=== PATIENT | male | born 1960 | race Caucasian/White ===

== ENCOUNTER → 2018-04-07 | Outpatient (CLI) | payer OTHER ==
[~2018-04-07] MED LIST: ASPIRIN 81M81 MG/TA2 PO; AVAPRO300 M1 PO; COREG 25MG25 MG/TAB PO; DESYREL 50MG50 MG PO; FLONASE NASAL S16 GM NS; GLUCOPHAGE1000 MG PO; KLONOPIN 1MG1 MG PO; LANTUS100 U/ML SC; LEXAPRO 10MG10 MG PO; NORCO 325 MG-51 TAB PO; NORVASC 5MG5 MG/TAB PO; NOVOLOG 100U100 U/M1 SC; PREDNISONE20 MG PO; PROVENTIL0.09 MG/A1 IH; RT ADVAIR 228 DISKUS IH; SINGULAIR 110 MG/TAB PO; VYTORIN 10 MG-41 TAB PO; ZYRTEC 10MG10 MG PO
== END ==
LOC: COL.VAS 08:31
DX: I51.7 Cardiomegaly (principal); I34.8 Other nonrheumatic mitral valve disorders

== ENCOUNTER → 2018-06-01 | Outpatient (CLI) | payer OTHER | LOC: COL.PUL 11:07 | DX: J45.909 Unspecified asthma, uncomplicated (principal); Z79.899 Other long term (current) drug therapy ==

== ENCOUNTER → 2018-12-28 | Outpatient (CLI) | payer OTHER | LOC: COL.PUL 09:27 | DX: J45.40 Moderate persistent asthma, uncomplicated (principal) | CPT/HCPCS: J7674 ==

== ENCOUNTER → 2019-07-28 | Outpatient (CLI) | payer OTHER | LOC: COL.RAD 11:26 | DX: R11.15 Cyclical vomiting syndrome unrelated to migraine (principal) | CPT/HCPCS: A9537; J2805 ==

== ENCOUNTER 2021-08-12 17:49 | Inpatient (IN) | payer OTHER ==
[~2021-08-12] VITALS: Ht 180.3 cm; Wt 156.4 kg
[2021-08-12 20:00] VITALS: BP 154/91; PULSE 167; TEMP 99
[2021-08-12 22:16] LABS: PARTIAL THROMBOPLASTIN TIME 28.8 SECONDS (26.0-37.0)
[2021-08-12] MEDS ORDERED: LIPITOR 80MG80 MG PO (22:44)
[2021-08-12] MEDS ORDERED: CALCIUM-500 5001 CTB PO (22:49)
[2021-08-12] MEDS ORDERED: VITAMIN D31000 IU PO (22:49)
[2021-08-12] MEDS ORDERED: FLINTSTONES1 CTB PO (22:50)
[2021-08-12] MEDS ORDERED: ZINC16.7 MG PO (22:51)
[2021-08-12] MEDS ORDERED: VITAMIN B12 781 TAB PO (22:51)
[2021-08-12] MEDS ORDERED: WELLBUTRIN XL300 M1 PO (22:52)
[2021-08-12] MEDS ORDERED: OZEMPIC0.25 MG/0. SQ (22:54)
[2021-08-12 23:24] VITALS: BP 150/81; PULSE 112; TEMP 98.7
[2021-08-13] VITALS (7 sets, daily range): BP systolic 112–155; BP diastolic 48–107; PULSE 71–107; TEMP 97.4–98.5
[2021-08-13] MEDS ORDERED: LEVOXYL0.112 MG PO (02:29)
[2021-08-13 06:47] LABS: BASO # 0.1 K/mm3 (0.0-0.2); EOS # 0.1 K/mm3 (0.0-0.7); EOS % 2.1 % (0.0-4.0); GRAN # 4.4 K/mm3 (1.4-6.5); GRAN % 65.2 % (42.2-75.2); HEMATOCRIT 42.8 % (42.0-52.0); HEMOGLOBIN 14.3 g/dl (13.5-18.0); LYMPH # 1.3 K/mm3 (1.2-3.4); LYMPH % 18.6 % (20.0-51.0); MEAN CELL VOLUME 96 fl (80.0-100.0); MEAN CORPUSCULAR HEMOGLOBIN 32 pg (27-31); MEAN CORPUSCULAR HGB CONC 33 g/dl (33.0-37.0); MEAN PLATELET VOLUME 12.3 fl (7.4-10.4); MONO # 0.8 K/mm3 (0.1-0.6); MONO % 12.1 % (1.7-9.3); PLATELET COUNT 127 K/mm3 (130-400); RED BLOOD COUNT 4.44 M/mm3 (4.20-5.60); REDCELL DISTRIBUTION WIDTH-CV 13.2 % (11.5-14.5)
[2021-08-13 07:06] LABS: CALCIUM 8.3 mg/dL (8.4-10.2); CREATININE, serum 0.73 mg/dL (0.72-1.25); MAGNESIUM 1.3 mg/dL (1.6-2.6); POTASSIUM 3.9 mmol/L (3.5-4.5)
--- NOTE | 2021-08-13 07:08 | NUR ---
PT HEPXA LAB WNL;GOAL, NO CHANGES TO HEP GTT AT THIS TIME.
[2021-08-13 07:28] LABS: TSH w REFLEX 7.642 uIU/mL (0.350-4.940)
--- NOTE | 2021-08-13 07:28 | NUR ---
CARDIOLOGY CONSULT CALLED TO DR. DYER
[2021-08-13] MEDS ORDERED: JARDIANCE10 (09:24)
--- NOTE | 2021-08-13 09:26 | NUR ---
Initial visit; Patient thanked [employer] for looking in on him and keeping him in her prayers.
--- NOTE | 2021-08-13 10:35 | NUR ---
TIANA met with the patiet and his , Joceline (ph#[phone]), to discuss discharge plan. The patient lives in [place] with his . He reports needing some assistance with bathing and has a cane, walker, showerchair, and a CPAP from [employer]. He states that his assists him with bathing. The patient's PCP is Dr. Jan Burgos and he receives his medications from [facility]. He reports no difficulties obtaining his meds. The patient does not have a DPOA-HC, but he was interested in obtaining a form. TIANA provided. The patient plans on returning home with his upon discharge. No additional needs at this time. *Discharge plan: home with *
--- NOTE | 2021-08-13 14:47 | NUR ---
Heparin gtt has been discontinued at this time. Removed from patient.
[2021-08-14] VITALS (10 sets, daily range): BP systolic 133–170; BP diastolic 75–93; PULSE 57–90; TEMP 97.4–98.7
[2021-08-14 06:33] LABS: BASO # 0.1 K/mm3 (0.0-0.2); BASO % 0.7 % (0.0-2.0); EOS # 0.2 K/mm3 (0.0-0.7); EOS % 2.1 % (0.0-4.0); GRAN # 5.4 K/mm3 (1.4-6.5); GRAN % 64.4 % (42.2-75.2); HEMATOCRIT 44.3 % (42.0-52.0); HEMOGLOBIN 14.4 g/dl (13.5-18.0); LYMPH # 1.6 K/mm3 (1.2-3.4); LYMPH % 19.4 % (20.0-51.0); MEAN CELL VOLUME 99 fl (80.0-100.0); MEAN CORPUSCULAR HEMOGLOBIN 32 pg (27-31); MEAN CORPUSCULAR HGB CONC 33 g/dl (33.0-37.0); MEAN PLATELET VOLUME 12.1 fl (7.4-10.4); MONO % 12.2 % (1.7-9.3); PLATELET COUNT 131 K/mm3 (130-400); RED BLOOD COUNT 4.49 M/mm3 (4.20-5.60); REDCELL DISTRIBUTION WIDTH-CV 13.5 % (11.5-14.5)
[2021-08-14 06:58] LABS: CALCIUM 8.7 mg/dL (8.4-10.2); CREATININE, serum 0.85 mg/dL (0.72-1.25); MAGNESIUM 1.6 mg/dL (1.6-2.6)
--- NOTE | 2021-08-14 11:00 | NUR ---
Shift assessment completed. Telemetry on, irregular heart rhythm. Upper lobes bilateral wheezing. Crackles bilateral lower lobes. No SOB at rest. Edema in bilateral lower extremeties. Peripheral pulses palpable, denies c/o pain in legs. [facility] check WNL. INT to rt posterior forearm intact.
--- NOTE | 2021-08-14 16:13 | NUR ---
PATIENT RETURNED FROM MEDICAL OFFICE CLERK AT 1545 IN STABLE CONDITION. VITAL SIGNS MONITORED EVERY 15 MIN x 4 TIMES. PATIENT HAS NOT COMPLAINTS AT THIS TIME. TOLERATED FOOD AND LIQUIDS. WILL CONT TO MONITOR PUNTURE SITE
--- NOTE | 2021-08-14 18:46 | NUR ---
PT HAD UNEVENTFUL AFTERNOON POST HEART CATH. PT HAD BRING IN WHOPPER AND FRIES FROM [facility] IMMEDIATELY FOLLOWING HEART CATH, THE PATIENT DID STATE THAT HE GOT NAUSEATED FROM EATING TOO FAST. NO OTHER CONCERNS. REPORT GIVEN TO WATER PUMP ASSEMBLER RN.
--- NOTE | 2021-08-14 18:53 | NUR ---
PT'S CAME OUT TO TELL US THAT HE USED HIS OWN PERSONAL INSULIN IN THE ROOM. THIS RN INFORMED THE , THAT HE HAD BEEN TOLD ALREADY TO SEND THE INSULIN HOME WITH HIS . WAS IN ROOM AT TIME OF INSULIN ADMINISTRATION. GAVE THIS INFORMATION TO THE UTILIZATION REVIEW NURSE RN WHO HAD ALREADY DISCUSSED WITH HIM THE IMPORTANCE OF NOT USING HIS OWN MEDICATION IN THE HOSPITAL. NO OTHER CONCERNS AT THIS TIME. REPORT WAS GIVEN TO UTILIZATION REVIEW NURSE RN.
[2021-08-15 04:07] VITALS: BP 145/84; PULSE 67; TEMP 98
--- NOTE | 2021-08-15 05:19 | NUR ---
PT HAD UNEVENTUFL NIGHT THIS SHIFT. R RADIAL SITE C/D/I WITH NO HEMATOMA NOTED, ACTIVE BLEEDING, CAPILLARY REFILL REMAIN WNL, PULSES WNL. PT REPORTS GENERAL DISCOMFORT TO SITE. VSS, (SYSTOLIC HYPERTENSIVE). ALL MEDICATIONS ADMINISTERED ORDERED. ALL NEEDS MET THIS SHIFT. CALL LIGHT WITHIN REACH.
[2021-08-15 06:57] LABS: HEMATOCRIT 43.2 % (42.0-52.0); HEMOGLOBIN 14.4 g/dl (13.5-18.0); MEAN CELL VOLUME 97 fl (80.0-100.0); MEAN CORPUSCULAR HEMOGLOBIN 32 pg (27-31); MEAN CORPUSCULAR HGB CONC 33 g/dl (33.0-37.0); PLATELET COUNT 134 K/mm3 (130-400); RED BLOOD COUNT 4.47 M/mm3 (4.20-5.60); REDCELL DISTRIBUTION WIDTH-CV 13.6 % (11.5-14.5)
[2021-08-15 07:08] LABS: CREATININE, serum 0.84 mg/dL (0.72-1.25); MAGNESIUM 1.8 mg/dL (1.6-2.6); POTASSIUM 4.1 mmol/L (3.5-4.5)
[2021-08-15 08:37] VITALS: BP 154/59; PULSE 80; TEMP 97.6
[2021-08-15] MEDS ORDERED: CLEOCIN HCL300 MG PO (09:39)
[2021-08-15] MEDS ORDERED: ELIQUIS 5MG PO (09:39)
[2021-08-15] MEDS ORDERED: BETAPACE 80MG80 MG PO (09:39)
[2021-08-15] MEDS ORDERED: HYGROTON 2525 MG/TAB PO (09:40)
[2021-08-15 09:44] LABS: BAND 10 % (0-10); BASOPHIL 1 % (0-2); EOSINOPHIL 3 % (0-4); LYMPHOCYTE 13 % (20.0-51.0)
[2021-08-15 09:45] LABS: PLATELET ESTIMATE NORMAL (NORMAL)
--- NOTE | 2021-08-15 09:46 | NUR ---
Assessment completed, alert/oriented, vital signs stable, denies pain or discomfort, heart RRR/distal pulses are palpable, some mild edema to BLE, lungs CTA/ no resp. difficulty noted, QTC wnl and Sotalol dose given, anticipate discharge home today
[2021-08-15 09:50] LABS: MYELOCYTE 1 % (0-0); NEUTROPHILS 57 % (42.0-75.2)
--- NOTE | 2021-08-15 10:21 | NUR ---
An exercise oximetry was ordered. The patient did not qualify for oxygen. No additional needs at this time.
[2021-08-15 11:09] VITALS: BP 169/84; PULSE 64; TEMP 98.2
--- NOTE | 2021-08-15 15:44 | NUR ---
Discharge orders discussed with the patient, instructed to follow up with PCP and Cardiology, IV and tele removed, instructed to take meds as prescribed, scripts sent to pharmacy for him, CHEMICAL RADIATION TECHNICIAN escorted them out
== END 2021-08-15 15:54 | disposition home or self-care (01) | DRG 286 ==
LOC: MEDICAL 17:49
PROVIDERS: Physician Assistant; Student in an Organized Health Care Education/Training Program; ADMIT Internal Medicine
PROC: 4A023N7 Measurement of Cardiac Sampling and Pressure, Left Heart, Percutaneous Approach (ICD-10-PCS; principal; 2021-08-14)
PROC: B2111ZZ Fluoroscopy of Multiple Coronary Arteries using Low Osmolar Contrast (ICD-10-PCS; 2021-08-14)
DX: I48.0 Paroxysmal atrial fibrillation (principal); J96.01 Acute respiratory failure with hypoxia; I50.21 Acute systolic (congestive) heart failure; Z68.43 Body mass index [BMI] 50.0-59.9, adult; I11.0 Hypertensive heart disease with heart failure; E03.9 Hypothyroidism, unspecified; E11.9 Type 2 diabetes mellitus without complications; E66.01 Morbid (severe) obesity due to excess calories; G47.33 Obstructive sleep apnea (adult) (pediatric); F41.9 Anxiety disorder, unspecified; F32.A Depression, unspecified; F43.10 Post-traumatic stress disorder, unspecified; E83.42 Hypomagnesemia; E78.5 Hyperlipidemia, unspecified; I34.0 Nonrheumatic mitral (valve) insufficiency; B97.4 Respiratory syncytial virus as the cause of diseases classified elsewhere; I42.9 Cardiomyopathy, unspecified; Z79.4 Long term (current) use of insulin
CPT/HCPCS: 99232-AI; 99239; A9540; C1764; C1769; J1644; J1815; J2250; J3010; J3475; Q9967

== ENCOUNTER 2023-06-11 10:26 | Day surgery (SDC) | payer OTHER ==
[~2023-06-11] VITALS: Ht 182.9 cm; Wt 183.8 kg
[~2023-06-11 10:26] MED LIST changes: +BETAPACE 80MG80 MG PO; +CALCIUM-500 5001 CTB PO; +CLEOCIN HCL300 MG PO; +ELIQUIS 5MG PO; +FLINTSTONES1 CTB PO; +HYGROTON 2525 MG/TAB PO; +JARDIANCE10; +LEVOXYL0.112 MG PO; +LIPITOR 80MG80 MG PO; +OZEMPIC0.25 MG/0. SQ; +VITAMIN B12 781 TAB PO; +VITAMIN D31000 IU PO; +WELLBUTRIN XL300 M1 PO; +ZINC16.7 MG PO
[2023-06-11 11:32] VITALS: BP 108/57; PULSE 90; TEMP 97.1
[2023-06-11] MEDS ORDERED: SYNTHROID0.075 MG/T PO (12:08)
[2023-06-11] MEDS ORDERED: BETAPACE 120MG120 MG PO (12:11)
[2023-06-11] MEDS ORDERED: TESSALON PERLE200 MG PO (12:13)
[2023-06-11] MEDS ORDERED: PULMICORT0.5 MG/2 M IH (12:14)
[2023-06-11] MEDS ORDERED: NATURE'S BLE1000 MCG PO (12:14)
[2023-06-11] MEDS ORDERED: WELLBUTRIN XL300 M1 PO (12:15)
[2023-06-11] MEDS ORDERED: CALCIUM CITRAT200 M2 PO (12:16)
[2023-06-11] MEDS ORDERED: HYGROTON 2525 MG/TAB PO (12:16)
[2023-06-11] MEDS ORDERED: DOXYCYCLINE HY100 MG PO (12:17)
[2023-06-11] MEDS ORDERED: MOUNJARO5 MG/0.5 M SQ (12:18)
[2023-06-11] MEDS ORDERED: CENTANY AT2% TP (12:21)
[2023-06-11] MEDS ORDERED: PROTONIX 40MG T40 MG PO (12:22)
[2023-06-11] MEDS ORDERED: ZOLOFT 100MG100 MG PO (12:23)
[2023-06-11] MEDS ORDERED: SLOW-MAG71.5 MG PO (12:24)
[2023-06-11] MEDS ORDERED: TOUJEO MAX300 UNIT/1 SQ (12:25)
[2023-06-11] MEDS ORDERED: XYZAL5 MG PO (12:25)
[2023-06-11] MEDS ORDERED: AMBIEN 10MG10 MG PO (12:26)
[2023-06-11 13:00] VITALS: BP 104/64; PULSE 91; TEMP 98.6
[2023-06-11 13:15] VITALS: BP 114/54; PULSE 87
--- NOTE | 2023-06-11 14:23 | NUR ---
1300-PATIENT ARRIVED VIA CART TO [facility], SPOUSE PRESENT AT BEDSIDE ON ARRIVAL. PATIENT ALERT AND ORIENTED, DENIES PAIN OR NAUSEA. VITAL SIGNS TAKEN, VSS. NOTED 91% O2 ON RA. ENCOURAGED DEEP BREATHING AND COUGHING EXERCISES. 1315-VSS. PATIENT DENIES COMPLAINTS, TOLERATING PO INTAKE WELL. 1330-DISCHARGE INSTRUCTIONS REVIEWED WITH PT AND SPOUSE, QUESTIONS INVITED. IV CATHETER DISCONTINUED, TIP INTACT. PRESSURE BANDAGE APPLIED. PATIENT ASSISTED TO SITTING POSITION AT BEDSIDE, SPOUSE ASSIST WITH CHANGING CLOTHING. PATIENT REPORTS BASELINE DIZZINESS, GAIT ASSISTED TO WHEELCHAIR WITH X1 ASSIST AND FURNITURE WALKING. 1349-PATIENT DISCHARGED HOME TO POV VIA WHEELCHAIR, ACCOMPANIED BY SPOUSE. ALL BELONGINGS AND DC PAPERWORK SENT WITH PT.
== END 2023-06-11 13:49 | disposition home or self-care (01) ==
LOC: SDCO 10:26
DX: Z12.11 Encounter for screening for malignant neoplasm of colon (principal); D12.3 Benign neoplasm of transverse colon; G47.33 Obstructive sleep apnea (adult) (pediatric); E66.01 Morbid (severe) obesity due to excess calories; I48.0 Paroxysmal atrial fibrillation; Z79.01 Long term (current) use of anticoagulants; Z68.43 Body mass index [BMI] 50.0-59.9, adult
CPT/HCPCS: J2704; J7120

== ENCOUNTER 2023-10-02 08:54 | Observation (INO) | payer OTHER ==
[~2023-10-02] VITALS: Ht 182.9 cm; Wt 188.0 kg
[~2023-10-02 08:54] MED LIST changes: +AMBIEN 10MG10 MG PO; +BETAPACE 120MG120 MG PO; +CALCIUM CITRAT200 M2 PO; +CENTANY AT2% TP; +DOXYCYCLINE HY100 MG PO; +MOUNJARO5 MG/0.5 M SQ; +NATURE'S BLE1000 MCG PO; +PROTONIX 40MG T40 MG PO; +PULMICORT0.5 MG/2 M IH; +SLOW-MAG71.5 MG PO; +SYNTHROID0.075 MG/T PO; +TESSALON PERLE200 MG PO; +TOUJEO MAX300 UNIT/1 SQ; +XYZAL5 MG PO; +ZOLOFT 100MG100 MG PO
[2023-10-02 09:49] LABS: HEMATOCRIT 42.8 % (42.0-52.0); HEMOGLOBIN 14.4 g/dl (13.5-18.0); MEAN CELL VOLUME 103 fl (80.0-100.0); MEAN CORPUSCULAR HEMOGLOBIN 35 pg (27-31); MEAN CORPUSCULAR HGB CONC 34 g/dl (33.0-37.0); MEAN PLATELET VOLUME 10.7 fl (7.4-10.4); PLATELET COUNT 127 K/mm3 (130-400); RED BLOOD COUNT 4.17 M/mm3 (4.20-5.60); REDCELL DISTRIBUTION WIDTH-CV 14.8 % (11.5-14.5)
[2023-10-02 10:13] LABS: ALANINE AMINOTRANSFERASE 59 U/L (0-55); ALBUMIN 2.7 g/dL (3.4-4.8); ALKALINE PHOSPHATASE 124 U/L (40-150); ANION GAP 20 mmol/L (7-16); AST,SGOT 79 U/L (5-34); BILIRUBIN,TOTAL 1.9 mg/dL (0.2-1.2); BLOOD UREA NITROGEN 7 mg/dL (8-26); CALCIUM 8.6 mg/dL (8.4-10.2); CHLORIDE 93 mEq/L (98-107); CREATININE, serum 0.86 mg/dL (0.72-1.25); GLUCOSE 323 mg/dL (70-99); POTASSIUM 3.5 mEq/L (3.5-4.5); SODIUM 139 mEq/L (136-145); TOTAL PROTEIN 6.1 g/dl (6.2-8.1)
[2023-10-02 10:19] LABS: BAND 13 % (0-10); BASOPHIL 2 % (0-2); EOSINOPHIL 2 % (0-4); LYMPHOCYTE 15 % (20.0-51.0); NEUTROPHILS 57 % (42.0-75.2); NUCLEATED RED BLOOD CELL 1 (0-6); PLATELET ESTIMATE DECREASED (NORMAL)
[2023-10-02 10:20] LABS: ALCOHOL(ethanol),MEDICAL < 10 mg/dL (0-10)
[2023-10-02] MEDS ORDERED: INSULIN AS100 UNIT/3 SQ (11:15)
[2023-10-02] MEDS ORDERED: MOUNJARO15 MG/0.5 SQ (11:16)
[2023-10-02] MEDS ORDERED: KLONOPIN 1MG1 MG PO (11:19)
[2023-10-02] MEDS ORDERED: LIPITOR 80MG80 MG PO (11:20)
[2023-10-02] MEDS ORDERED: ELIQUIS 5MG PO (11:22)
[2023-10-02] MEDS ORDERED: PROTONIX 40MG T40 MG PO (11:23)
[2023-10-02] MEDS ORDERED: JARDIANCE10 PO (11:27)
--- NOTE | 2023-10-02 12:15 | NUR ---
PATIENT ARRIVED FROM ER IN STABLE CONDITION. PATIENTS VITALS STABLE. CALL LIGHT WTIHIN REACH. PATIENTS AT BEDSIDE. PATIENT O2 AT 3LNC. PER PATIENT HE DOES NOT USE HOME O2 AT HOME. PHYSICAL ASSESS COMPLETE. SEE CHARTING
[2023-10-02] MEDS ORDERED: *Potassium Replacement Protocol MC SCH (12:30)
[2023-10-02 12:45] VITALS: BP 151/77; PULSE 88; TEMP 98.2
--- NOTE | 2023-10-02 13:00 | NUR ---
PER CARDIOLOGY PATIENT TO BE NPO.. CARDIOLOGY AWARE OF PATIENT INTAKE AND HISTORY
[2023-10-02 13:25] VITALS: BP_SYST 151
--- NOTE | 2023-10-02 13:31 | NUR ---
MED REC COMPLETE. THIS RN CALLED AND RECIVEDA [facility] LIST FROM [facility]. PATIENT IS AWAKE AND ALERT, SITTING UP IN BED.
[2023-10-02 14:23] VITALS: BP 151/72; PULSE 88; TEMP 98
[2023-10-02] MEDS ORDERED: Miconazole 2% Topical Powder BOTTLE TP SCH (15:09)
--- NOTE | 2023-10-02 15:25 | NUR ---
PATIENT REQUIRED THREE PERSON MAX ASSIST FROM COMMOD TO BED. PATIENT SEEMED BARELY ABLE TO HOLD HIS WEIGHT. PATIENT NOW SITTING UP IN BED. MEPILEX APPLIED TO SACRUM AND MICONAZOLE POWDER TO BE APPLIED TO EXCORIATED AREAS. PATIENTS CALL LIGHT WITHIN REACH, FALL PRECAUTIONS IN PLACE. PATIENT STILL NPO FOR CARDIOLOGY CONSULT.
[2023-10-02 16:07] VITALS: BP 149/81; PULSE 100; TEMP 97.4
[2023-10-02] MEDS ORDERED: Dextrose (Glucose) 15 GM (4 x 3.75 GM) Chewable TABLET PACK PO PRN (17:30)
[2023-10-02] MEDS ORDERED: Glucagon 1 MG VIAL IM PRN (17:30)
[2023-10-02] MEDS ORDERED: Dextrose 50% Water 25 GM/50 ML SYRINGE IV PRN (17:30)
[2023-10-02] MEDS ORDERED: LORazepam 2 MG/ML 1 ML VIAL IV PRN (17:45)
[2023-10-02] MEDS ORDERED: diazePAM 10 MG TAB PO SCH (17:45)
[2023-10-02] MEDS ORDERED: Mag/Al Hydrox/Simeth Susp 30 ML CUP PO PRN (17:45)
[2023-10-02] MEDS ORDERED: Folic Acid 1 MG TAB PO SCH (17:45)
[2023-10-02] MEDS ORDERED: Insulin Lispro (HumaLOG) SQ SCH (18:00)
--- NOTE | 2023-10-02 18:00 | NUR ---
PATIENT SWEATING, NOTICEABLE TREMORS, DENEIS HALLUCINATIONS OR VISIUAL DISTURBANCES. PATIENT REPORTS SOME ANXIETY. DENIES ANY N,V. PATIENT MEDICATED PER PROTOCOL. PATIENT EXPLAINED DETOX PROTOCOL, HE DENIES ANY OTHER COMPLAINTS OR NEEDS AT THIS TIME. PATIENTS AT BEDSIDE. FALL PRECAUTIONS INPLACE. CALL LIGHT WITHIN REACH.
[2023-10-02 18:06] VITALS: BP 149/82; PULSE 101; TEMP 97.8
--- NOTE | 2023-10-02 18:25 | NUR ---
JORDY GIVEN TO ANNALEE AT [facility]. ALL QUESTIONS ANSWERED AND CALL BACK NUMBER GIVEN.
--- NOTE | 2023-10-02 18:45 | NUR ---
PATIENT TAKEN VIA EMS TO [facility]. PATIENT LEFT IN STABLE CONDITION. PATIENTS BELONGINGS ARE WITH HIS .
[2023-10-03] MEDS ORDERED: Multivitamin TAB PO SCH (08:00)
== END 2023-10-02 18:45 | disposition short-term general hospital (02) ==
LOC: COL.ER 08:54 → MEDICAL 10:55
PROVIDERS: Family Medicine; ADMIT Internal Medicine
DX: R53.1 Weakness (principal); J96.01 Acute respiratory failure with hypoxia; E11.9 Type 2 diabetes mellitus without complications; R42 Dizziness and giddiness; R55 Syncope and collapse; I48.91 Unspecified atrial fibrillation; F32.A Depression, unspecified; I11.9 Hypertensive heart disease without heart failure; G47.33 Obstructive sleep apnea (adult) (pediatric); E66.01 Morbid (severe) obesity due to excess calories; T45.516A Underdosing of anticoagulants, initial encounter; Z68.43 Body mass index [BMI] 50.0-59.9, adult; Z95.818 Presence of other cardiac implants and grafts; Z79.84 Long term (current) use of oral hypoglycemic drugs; Z79.4 Long term (current) use of insulin; W19.XXXA Unspecified fall, initial encounter; Z93.0 Tracheostomy status; Z79.01 Long term (current) use of anticoagulants; Y93.9 Activity, unspecified
CPT/HCPCS: G0378; J1815; J2060